=== PATIENT | female | born 1980 | race Caucasian/White ===

== ENCOUNTER → 2018-05-04 | Outpatient (CLI) | payer OTHER ==
--- NOTE | 2018-05-08 13:54 | SLEEPCENT ---
DATE OF PROCEDURE: 05/04/2018 ORDERING PROVIDER: Dr. Mack Nocturnal polysomnography was performed for evaluation of sleep physiology in this patient with a history of excessive somnolence, snoring and nonrestorative sleep. 8 hours and 31 minutes of data were reviewed. There were 431 minutes of sleep identified. Sleep latency was prolonged at 42 minutes. Rapid eye movement (REM) latency more prolonged at 145 minutes. Sleep architecture showed poor progression and fragmentation. There were three REM cycles noted. Overall sleep efficiency was 85%. REM time was about half. The patient's electrocardiogram showed a sinus rhythm with an average heart rate 62 beats per minute. Rate ranged 56-82. Electroencephalogram (EEG) showed very mild coarsening in the background but no focal events. Normal waveforms were seen for awake and sleep stages. There were 117 respiratory events identified of 10 seconds in duration or greater for an apnea-hypopnea index of 15.3. The events were obstructive, not exclusive to sleep stage, more frequent but not exclusive to the supine posture. Arousals from respiratory events occurred 17.3 times per hour and oxygen desaturations were seen into the low 80s. The oxygen desaturation index was 2.9. There was some activity in the limb leads but limb movement arousal index was only 4.2. IMPRESSION: Obstructive sleep apnea syndrome (G47.33). Apnea-hypopnea index 16.3. RECOMMENDATIONS: The patient should be encouraged to return to the sleep disorder center for pressure therapy. In the interim, alcohol and sedative avoidance should be practiced and caution exercised during operation of motor vehicles.
== END ==
LOC: M SLEEP 19:41
PROVIDERS: ATTEND Internal Medicine Pulmonary Disease
DX: G47.33 Obstructive sleep apnea (adult) (pediatric) (principal)

== ENCOUNTER → 2018-06-08 | Outpatient (CLI) | payer OTHER ==
--- NOTE | 2018-06-10 12:27 | ECHO ---
DATE OF PROCEDURE: 06/08/2018 AGE: 37 GENDER: Female. Height 67 inches Weight 250 pounds Body surface area 2.22 m2 REFERRING PHYSICIAN: Akila Mack MD INDICATION: Pulmonary artery embolism. MEASUREMENTS 2-D MEASUREMENTS: RV - 4.8 cm LV - 4.6 cm Septum 0.8 cm Posterior wall 0.8 cm Aortic root 2.8 cm LA - 3.4 cm LVEF 65% DOPPLER MEASUREMENTS: AV - 1.41 ms LVOT - 1.25 ms LVOT diameter 2.0 cm MV-E 88, A 44, E:A ratio 2.0 Early mitral deceleration time 183 milliseconds E prime 12, A prime 8.1, E/E prime ratio 7.3 PCWP - 10.6 mmHg PV - 0.7 ms Pulmonary artery acceleration time 100 milliseconds RVSP 41 mmHg COMMENTS: Normal sinus rhythm without intraventricular conduction disturbance. Technically challenging study in light of the patient's body habitus but diagnostically useful information was still obtained. M-mode and two-dimensional echocardiography was performed with pulsed, continuous wave, color flow and tissue Doppler studies. Normal left ventricular size, wall thickness and wall motion. Normal left atrial size and Doppler assessment of LV diastolic function and estimated mean left atrial pressure. At least mildly dilated right heart chambers with normal wall motion but Doppler evidence of moderate pulmonary hypertension. IVC could not be visualized, but the right atrium was at least mildly dilated. Normal appearing and functioning valvular structures. Unable to detect an intracardiac mass. No pericardial effusion.
== END ==
LOC: M CARPUL 09:32
PROVIDERS: ATTEND Internal Medicine Pulmonary Disease
DX: I26.92 Saddle embolus of pulmonary artery without acute cor pulmonale (principal)

== ENCOUNTER → 2018-06-08 | Outpatient (CLI) | payer OTHER ==
[2018-06-13 11:31] LABS: DRVV SCREEN 108.5 SEC
[2018-06-13 12:14] LABS: PTT LUPUS TYPE ANTICOAG SCREEN 2.6 (0-1.2)
[2018-06-13 12:31] LABS: DRVV CONFIRM 49.4 SEC; LUPUS CONFIRM RATIO 1.3
[2018-06-15 00:07] LABS: ANTI THROMBIN 3 ANTIGEN IMMUNO 77 % (72-124); ANTI THROMBIN 3 FUNCT ACTIVITY 102 % (75-135); BETA-2 GLYCOPROTEIN I ABY IGA <9 (0-25); BETA-2 GLYCOPROTEIN I ABY IGG <9 (0-20); BETA-2 GLYCOPROTEIN I ABY IGM <9 (0-32); CARDIOLIPIN IGA ANTIBODY <9 APL U/mL (0-11); CARDIOLIPIN IGG ANTIBODY <9 GPL U/mL (0-14); CARDIOLIPIN IGM ANTIBODY <9 MPL U/mL (0-12); PROTEIN C FUNCTIONAL ACTIVITY 142 % (73-180); PROTEIN S ANTIGEN FREE 75 % (57-157); PROTEIN S ANTIGEN TOTAL 71 % (60-150); PROTEIN S FUNCTIONAL ACTIVITY 79 % (63-140)
== END ==
LOC: M LAB 10:13
PROVIDERS: ATTEND Internal Medicine Pulmonary Disease
DX: I26.92 Saddle embolus of pulmonary artery without acute cor pulmonale (principal); M05.89 Other rheumatoid arthritis with rheumatoid factor of multiple sites

== ENCOUNTER → 2018-06-08 | Outpatient (CLI) | payer OTHER ==
[2018-06-08 10:55] LABS: HEMATOCRIT 39.6 % (36.0-47.0); HEMOGLOBIN 13.2 g/dl (12.0-15.5); MEAN CORPUSCULAR HEMOGLOBIN 30.3 pg (27.0-33.0); MEAN CORPUSCULAR HGB CONC 33.3 g/dl (32.0-36.5); PLATELET COUNT, AUTOMATED 234 10^3/uL (150-450); RED BLOOD COUNT 4.35 10^6/uL (4.00-5.40); WHITE BLOOD COUNT 6.1 10^3/uL (4.0-10.0)
[2018-06-08 12:26] LABS: ALBUMIN 3.7 GM/DL (3.2-5.2); ALT/SGPT 22 U/L (12-78); BILIRUBIN,TOTAL 0.3 MG/DL (0.2-1.0); BLOOD UREA NITROGEN 14 MG/DL (7-18); C REACTIVE PROTEIN QUANTITATIV < 0.30 MG/DL (0.00-0.30); CALCIUM LEVEL 8.8 MG/DL (8.5-10.1); CARBON DIOXIDE LEVEL 29 MEQ/L (21-32); CHLORIDE LEVEL 105 MEQ/L (98-107); CREATININE FOR GFR 0.74 MG/DL (0.55-1.30); GLOMERULAR FILTRATION RATE > 60.0 (>60); GLUCOSE, FASTING 91 MG/DL (70-100); POTASSIUM SERUM 3.9 MEQ/L (3.5-5.1); SODIUM LEVEL 142 MEQ/L (136-145); TOTAL PROTEIN 6.5 GM/DL (6.4-8.2)
== END ==
LOC: M LAB 10:08
PROVIDERS: ATTEND Internal Medicine Rheumatology
DX: Z51.81 Encounter for therapeutic drug level monitoring (principal); M05.89 Other rheumatoid arthritis with rheumatoid factor of multiple sites

== ENCOUNTER → 2018-06-19 | Outpatient (CLI) | payer OTHER ==
[2018-06-19 19:19] LABS: BASO # 0.1 10^3/uL (0.0-0.2); EOS # 0.2 10^3/uL (0.0-0.50); HEMATOCRIT 43.1 % (36.0-47.0); HEMOGLOBIN 13.9 g/dl (12.0-15.5); LYMPH # 2.9 10^3/uL (1.5-4.5); LYMPH % 37.9 % (24.0-44.0); MEAN CORPUSCULAR HEMOGLOBIN 29.8 pg (27.0-33.0); MEAN CORPUSCULAR HGB CONC 32.3 g/dl (32.0-36.5); MEAN CORPUSCULAR VOLUME 92.5 fl (80.0-96.0); MONO # 0.9 10^3/uL (0.0-0.8); MONO % 11.6 % (0.0-5.0); NEUTROPHILS # 3.6 10^3/uL (1.8-7.7); NEUTROPHILS % 46.4 % (36.0-66.0); PLATELET COUNT, AUTOMATED 352 10^3/uL (150-450); RED BLOOD COUNT 4.66 10^6/uL (4.00-5.40); WHITE BLOOD COUNT 7.7 10^3/uL (4.0-10.0)
[2018-06-19 19:22] LABS: COMPLEMENT C3 103 MG/DL (90-180); COMPLEMENT C4 19 MG/DL (10-40)
[2018-06-19 20:01] LABS: ERYTHROCYTE SEDIMENTATION RATE 6 mm/hr (0-20)
[2018-06-25 14:11] LABS: ANCA-ATYPICAL <1:20 titer (Neg:<1:20); ANTI DOUBLE STRAND-DNA AB 1 IU/mL (0-9); ANTINUCLEAR ANTIBODIES DIRECT Negative (Negative); CYTOPLASMIC NEUTROP AB ANCA-C <1:20 titer (Neg:<1:20); PERINUCLEAR AB ANCA-P <1:20 titer (Neg:<1:20); RNP ANTIBODIES 0.4 AI (0.0-0.9); SJOGREN'S ANTI SS-A <0.2 AI (0.0-0.9); SJOGREN'S ANTI SS-B <0.2 AI (0.0-0.9); SMITH ANTIBODIES <0.2 AI (0.0-0.9)
== END ==
LOC: M SMT 14:08
PROVIDERS: ATTEND Internal Medicine Pulmonary Disease
DX: R21 Rash and other nonspecific skin eruption (principal)

== ENCOUNTER → 2018-06-27 | Outpatient (CLI) | payer OTHER ==
--- NOTE | 2018-06-27 14:39 | REP ---
Clinical: History of pulmonary saddle embolus . Comparison: None . Technique: PA and lateral. Findings: The mediastinum and cardiac silhouette are normal. The lung rivers are clear and without acute consolidation, effusion, or pneumothorax. The skeletal structures are intact and normal. Impression: 1. No acute cardiopulmonary process. Electronically Signed by Chapin Rogers MD 06/27/2018 01:29 P
--- NOTE | 2018-06-27 14:50 | REP ---
Ventilation-perfusion lung scan: History: History of saddle embolism pulmonary artery. Shortness of breath. Occasional chest pain. Comparison is made with today's chest x-ray. No prior radiographic imaging is available. Technique: 1.0 mCi technetium 99m DTPA aerosol is utilized for the ventilation study and is followed by a 5.5 mCi dose of technetium-99m MAA given intravenously for the perfusion exam. A series of eight planar images are acquired for each portion of the study. Scintigraphic findings: The ventilation study shows some swallowed tracer activity in the esophagus and stomach. The ventilation and perfusion study show homogeneous uptake in the lung parenchyma bilaterally. No perfusion defect is seen on either side. Impression: Normal ventilation perfusion lung scan. No scintigraphic evidence of pulmonary embolism. Electronically Signed by Tony Galvan MD 06/27/2018 03:22 P
== END ==
LOC: M RAD 12:36
PROVIDERS: ATTEND Internal Medicine Pulmonary Disease
DX: I26.92 Saddle embolus of pulmonary artery without acute cor pulmonale (principal)

== ENCOUNTER → 2018-07-14 | Outpatient (CLI) | payer OTHER ==
--- NOTE | 2018-07-17 16:41 | SLEEPCENT ---
DATE OF PROCEDURE: 07/14/2018 ORDERED BY: Dr. Mack Nocturnal polysomnography was performed for the titration of pressure therapy in this patient with obstructive sleep apnea syndrome, apnea-hypopnea index of 16.3. For testing, a ResMed Mirage FX nasal mask of standard size was used, 4 cm of water pressure were applied to the circuit and the lights were extinguished. 7 hours and 23 minutes of data were reviewed. There were 346 minutes of sleep identified. Sleep latency was prolonged at 43.5 minutes. REM latency was prolonged at 133 minutes. Sleep architecture was fair. There was a period of wake late in the study resulting in reduced sleep efficiency of 78.9%. The electrocardiogram showed a sinus rhythm with an average heart rate of 62 beats per minute. EEG showed normal waveforms for awake and sleep. Respiratory events were fully palliated with CPAP at a pressure of 4. Some limb activity was noted over the course of the study. Limb movement arousal index was 7.4, up from the diagnostic night. IMPRESSION: Obstructive sleep apnea syndrome (G47.33) RECOMMENDATIONS: Nightly use of pressure therapy 4 cm of water.
== END ==
LOC: M SLEEP 20:00
PROVIDERS: ATTEND Internal Medicine Pulmonary Disease
DX: G47.33 Obstructive sleep apnea (adult) (pediatric) (principal)

== ENCOUNTER → 2018-08-03 | Outpatient (CLI) | payer OTHER ==
--- NOTE | 2018-08-03 14:05 | REP ---
Bilateral TMJ series: History: Pain. Findings: Seven views of the temporomandibular joint regions show absence of opening translation bilaterally. The temporal fossa and mandibular condyles are morphologically normal however. No joint space narrowing or sclerosis is seen. Impression: Limited range of motion with absence of opening translation bilaterally. No bony abnormality. Electronically Signed by Tony Galvan MD 08/03/2018 02:38 P
[2018-08-03 17:39] LABS: BASO # 0.1 10^3/uL (0.0-0.2); BASO % 0.6 % (0.0-1.0); EOS # 0.3 10^3/uL (0.0-0.50); EOS % 2.8 % (0.0-3.0); HEMATOCRIT 44.5 % (36.0-47.0); HEMOGLOBIN 14.2 g/dl (12.0-15.5); LYMPH # 2.7 10^3/uL (1.5-4.5); MEAN CORPUSCULAR HEMOGLOBIN 29.8 pg (27.0-33.0); MEAN CORPUSCULAR HGB CONC 31.9 g/dl (32.0-36.5); MEAN CORPUSCULAR VOLUME 93.3 fl (80.0-96.0); MONO % 11.3 % (0.0-5.0); NEUTROPHILS % 55.1 % (36.0-66.0); PLATELET COUNT, AUTOMATED 321 10^3/uL (150-450); RED BLOOD COUNT 4.77 10^6/uL (4.00-5.40)
[2018-08-03 18:08] LABS: ALBUMIN 4.2 GM/DL (3.2-5.2); ALT/SGPT 25 U/L (12-78); BILIRUBIN,TOTAL 0.5 MG/DL (0.2-1.0); BLOOD UREA NITROGEN 14 MG/DL (7-18); CALCIUM LEVEL 9.6 MG/DL (8.5-10.1); CARBON DIOXIDE LEVEL 28 MEQ/L (21-32); CHLORIDE LEVEL 102 MEQ/L (98-107); CREATININE FOR GFR 0.83 MG/DL (0.55-1.30); GLOMERULAR FILTRATION RATE > 60.0 (>60); GLUCOSE, FASTING 72 MG/DL (70-100); POTASSIUM SERUM 4.7 MEQ/L (3.5-5.1); SODIUM LEVEL 137 MEQ/L (136-145); TOTAL PROTEIN 7.3 GM/DL (6.4-8.2)
== END ==
LOC: M WUC 10:38
PROVIDERS: ATTEND Physician Assistant
DX: M26.52 Limited mandibular range of motion (principal); R68.84 Jaw pain

== ENCOUNTER → 2018-11-13 | Outpatient (CLI) | payer OTHER ==
[~2018-11-13] MED LIST: ISOVUE-370 76% 100ML VIAL (Q9967) As Ordered ONE
--- NOTE | 2018-11-13 14:41 | REP ---
CT ANGIOGRAM CHEST: TECHNIQUE: Axial contrast enhanced images from the thoracic inlet to the upper abdomen using 100 mL Isovue 370 intravenous contrast material with multiplanar reformations. There is no CT evidence of pulmonary embolism. There is no thoracic aortic aneurysm or dissection. Heart is slightly enlarged. There is no mediastinal, hilar, or chest wall lymphadenopathy. There is no pleural or pericardial effusion. There are dependent atelectatic changes in both lungs. There is diffuse fatty infiltration of the liver. IMPRESSION: No CT evidence of pulmonary embolism or aortic dissection. Electronically Signed by Sumanth Brown MD 11/13/2018 06:47 P
== END ==
LOC: M RAD 12:23
PROVIDERS: ATTEND Internal Medicine Pulmonary Disease
DX: Z86.711 Personal history of pulmonary embolism (principal); R07.9 Chest pain, unspecified

== ENCOUNTER → 2019-03-27 | Outpatient (CLI) | payer OTHER ==
--- NOTE | 2019-03-28 14:17 | ECHO ---
DATE OF PROCEDURE: 03/27/2019 DATE OF : 1980 AGE: 38 REFERRING PROVIDER: Dr. Akila Mack PATIENT LOCATION: Outpatient. REASON FOR THE STUDY: History of pulmonary embolism. 2-D MEASUREMENTS: IVS: 1.0 cm LV: 4.5 cm LVPW: 1.1 cm LA: 3.8 cm Aorta: 3.0 cm RV: 2.5 cm IVC: 1.9 cm DOPPLER MEASUREMENTS: Peak velocity across the aortic valve: 1.2 m/s Peak velocity across the LVOT: 0.9 m/s Mitral E: 0.75, Mitral A: 0.73 with a ratio of greater than 1.0. Maximum tricuspid valve velocity: 2.7 m/s 2-D COMMENTS: 1. Normal left ventricular size, wall thickness, and normal global left ventricular systolic function. The estimated left ventricular systolic ejection fraction is 60-65%. 2. Normal left atrium. Normal right atrium and right ventricle. 3. The atrial septum appeared to be normal without evidence of defect or shunt. 4. Normal aortic root. 5. Trace pericardial effusion was noted, no evidence of cardiac tamponade. 6. The aortic valve, mitral valve, tricuspid valve, and pulmonic valve appeared to be normal. The proximal pulmonary artery branches also appear to be normal in size in limited views. DOPPLER: It detects trace mitral regurgitation and mild tricuspid regurgitation. The calculated pulmonary artery systolic pressure varies between 30-40 mmHg. Abnormal relaxation pattern was noted across the mitral valve leaflets as well as mitral valve annulus consistent with features of grade 1 left ventricular diastolic dysfunction. IMPRESSION: 1. Normal global left ventricular systolic function. There were some features of grade 1 left ventricular diastolic dysfunction manifested by abnormal relaxation. 2. Trace mitral regurgitation. 3. Mild tricuspid regurgitation with mild pulmonary hypertension. 4. As mentioned above, trace pericardial effusion was noted particularly at the base of the left ventricle.
== END ==
LOC: M CARPUL 08:07
PROVIDERS: ATTEND Internal Medicine Pulmonary Disease
DX: Z86.711 Personal history of pulmonary embolism (principal)

== ENCOUNTER → 2019-06-19 | Outpatient (CLI) | payer OTHER | LOC: M WUC 16:29 | PROVIDERS: ATTEND Internal Medicine Pulmonary Disease | DX: G47.33 Obstructive sleep apnea (adult) (pediatric) (principal) ==